=== PATIENT | female | born 1980 | race Caucasian/White ===

== ENCOUNTER 2017-02-10 19:55 | Emergency (ER) | payer OTHER ==
[~2017-02-10] VITALS: Ht 162.6 cm; Wt 87.4 kg
[2017-02-10 20:04] VITALS: BP 175/81; PULSE 95; RESP 14; TEMP 97.7; O2SAT 98
[2017-02-10] MEDS ORDERED: KETOROLAC TROMETHAMINE 60 MG/2 ML (IM) VIAL IM ONE (20:45)
[2017-02-10] MEDS ORDERED: ORPHENADRINE INJ 60 MG/2 ML AMP IM ONE (20:45)
[2017-02-10] MEDS ORDERED: PRED20 PO (20:49)
--- NOTE | 2017-02-10 20:50 | PD ---
HPI . Left lateral lower back pain Chief Complaint: Back/ Neck Pain or Injury Time Seen by Provider: 20:25 Travel History International Travel<30 days: No Contact w/Intl Traveler<30days: No Traveled to known affect area: No History of Present Illness HPI 36-year-old female presents emergency department for evaluation of left lateral lower back pain that originated this morning when she first woke up. Patient denies any injury or trauma occurring to the site. Patient denies any fever, chest pain, shortness breath, malaise, dysuria, hematuria or lightheadedness. The pain originates in the left buttocks and shoots down the left posterior portion of the leg to the knee. Patient denies any previous episodes of sciatica. PFSH Past Medical History Diabetes: Yes Patient Takes Glucophage: No Hypertension: Yes ?: Not Past Surgical History Hysterectomy: Yes Social History Alcohol Use: No Tobacco Use: No Substance Use: No Allergies-Medications (Allergen,Severity, Reaction): Coded Allergies: No Known Allergies (Verified Allergy, Unknown, 02/10/17) Reported Meds & Prescriptions Reported Meds & Active Scripts Active No Active Prescriptions or Reported Medications Review of Systems Except as stated in HPI: all other systems reviewed are Neg Physical Exam Narrative GENERAL: Well-nourished, well-developed 36-year-old female patient in no acute distress. SKIN: Focused skin assessment warm/dry. HEAD: Normocephalic. Atraumatic. EYES: No scleral icterus. No injection or drainage. NECK: Supple, trachea midline. No JVD or lymphadenopathy. CARDIOVASCULAR: Regular rate and rhythm without murmurs, gallops, or rubs. RESPIRATORY: Breath sounds equal bilaterally. No accessory muscle use. GASTROINTESTINAL: Abdomen soft, non-tender, nondistended. MUSCULOSKELETAL: Equal strength in bilateral lower extremities. Full range of motion noted in bilateral lower extremities. No cyanosis, or edema. BACK: Nontender without obvious deformity. No CVA tenderness. Data Data Last Documented VS Vital Signs Date Time Temp Pulse Resp B/P (MAP) Pulse Ox O2 Delivery O2 Flow Rate FiO2 02/10/17 20:04 97.7 95 14 175/81 (112) 98 Orders Orders Ketorolac Inj (Toradol Inj) (02/10/17 20:45) Orphenadrine Inj (Norflex Inj) (02/10/17 20:45) [facility] Medical Decision Making Medical Screen Exam Complete: Yes Emergency Medical Condition: Yes Differential Diagnosis Differential diagnoses include but not limited to sciatica, contusion, lower back pain Narrative Course 36-year-old female presents to the emergency department for evaluation of left lateral lower back pain. Patient denies any paresthesias, incontinence of urine or stool. Patient denies any fevers, chills, malaise, chest pain or shortness of breath. The pain originates in the left buttocks and radiates down the posterior aspect of the left leg around the knee. Patient is ambulatory with pain. Patient has full range of motion of bilateral lower extremities. Bilateral lower extremities have equal strength. Based on patient' s symptoms, clinical presentation, vital sign review and physical exam it is not necessary to admit the patient to the hospital or keep the patient in the emergency department for further evaluation. Patient will be given an IM injection of Toradol and an IM injection of Norflex and discharged home with a prescription for prednisone. Diagnosis Primary Impression: Sciatica Qualified Codes: M54.32 - Sciatica, left side Patient Instructions: General Instructions, Sciatica (ED) Additional Instructions: Please return to emergency department if your symptoms return or worsen. Follow up with your primary care provider. Take medications as prescribed. Med/Other Pt SpecificInfo: Prescription(s) given Scripts Prednisone (Prednisone) 20 Mg Tab 40 MG PO DAILY for 5 Days, #5 TAB 0 Refills Take 40 mg (2 tablets) daily for 5 days Prov: Rani Chen 02/10/17 Disposition: 01 DISCHARGE HOME Condition: Stable Rani Chen Feb 10, 2017 20:50
== END 2017-02-10 21:01 | disposition home or self-care (01) ==
LOC: PHEFT 19:55
DX: M54.42 Lumbago with sciatica, left side (principal); E11.9 Type 2 diabetes mellitus without complications; I10 Essential (primary) hypertension
CPT/HCPCS: 96372; 99284; J1885; J2360